=== PATIENT | female | born 1970 | race Caucasian/White ===

== ENCOUNTER 2024-03-04 08:07 | Outpatient (CLI) | payer BC ==
[2024-03-04 12:42] LABS: BASOPHILS % (AUTO) 0.8 %; EOSINOPHILS # (AUTO) 0.4 10^3/uL (0.0-0.7); EOSINOPHILS % (AUTO) 7.7 %; HCT - HEMATOCRIT 42.7 % (37.0-47.0); LYMPHOCYTES # (AUTO) 1.7 10^3/uL (1.5-3.5); LYMPHOCYTES % (AUTO) 35.5 %; MEAN CORPUSCULAR HEMOGLOBIN 29.7 pg (27.0-31.0); MEAN CORPUSCULAR HGB CONC 32.8 g/dL (32.0-36.0); MEAN CORPUSCULAR VOLUME 90.7 fL (81.0-99.0); MEAN PLATELET VOLUME 11.5 fL (7.9-10.8); MONOCYTES # (AUTO) 0.7 10^3/uL (0.0-1.0); MONOCYTES % (AUTO) 14.8 %; PLT - PLATELET COUNT 257 10^3/uL (130-450); RED BLOOD COUNT 4.71 10^6/uL (4.20-5.40); RED CELL DISTRIBUTION WIDTH 12.6 % (12.0-15.0); WHITE BLOOD COUNT 4.8 x10^3/uL (4.8-10.8)
[2024-03-04 13:10] LABS: ESTIMATED AVERAGE GLUCOSE 103 mg/dL (70-100); HEMOGLOBIN A1c% 5.2 % (4.27-6.07)
[2024-03-04 13:12] LABS: % IRON SATURATION 21 % (20-50); ALBUMIN 4.7 g/dL (3.2-5.5); ALBUMIN/GLOBULIN RATIO 1.3 (1.0-2.2); ALKALINE PHOSPHATASE 105 IU/L (42-121); ALT ALANINE AMINOTRANSFERASE 13 IU/L (10-60); AST ASPARTATE AMINOTRANSFERASE 24 IU/L (10-42); BILIRUBIN,TOTAL 0.6 mg/dL (0.2-1.0); BUN - BLOOD UREA NITROGEN 14 mg/dL (6-20); CALCIUM 10.4 mg/dL (8.5-10.3); CARBON DIOXIDE - CO2 29 mmol/L (21-32); CHLORIDE 103 mmol/L (101-111); CHOL/HDL RATIO 2.8 (<4.4); CHOLESTEROL 233 mg/dL; CREATININE 0.8 mg/dL (0.6-1.3); GFR - MDRD 75 (>89); GLUCOSE 99 mg/dL (74-104); HDL CHOLESTEROL 82 mg/dL; IRON 69 ug/dL (50-212); LDL CHOLESTEROL,CALCULATED 133 mg/dL; LDL/HDL RATIO 1.6 (<4.4); SODIUM 138 mmol/L (135-145); TOTAL IRON BINDING CAPACITY 323 ug/dL (250-450); TOTAL PROTEIN 8.2 g/dL (6.4-8.9); TRANSFERRIN 231 mg/dL (203-362); TRIGLYCERIDES 91 mg/dL; VLDL CHOLESTEROL 18 mg/dL
[2024-03-05 08:10] LABS: DHEA-SULFATE 22.3 ug/dL (41.2-243.7); ESTRADIOL <5.0 pg/mL (.); PROGESTERONE 0.3 ng/mL (.)
== END 2024-03-04 08:08 | disposition home or self-care (01) ==
LOC: LAB.N 08:07
PROVIDERS: ATTEND Naturopath
DX: R68.82 Decreased libido (principal)
CPT/HCPCS: 36415; 80053; 80061; 81599; 82627; 82670; 82728; 83036; 83090; 83540; 83721; 84144; 84270; 84402; 84403; 84466; 85025